=== PATIENT | female | born 1935 | race Caucasian/White ===

== ENCOUNTER 2016-11-13 06:01 | Emergency (ER) | payer MEDICARE ==
[2016-11-13] MEDS ORDERED: ACETAMINOPHEN 325 MG TABLET ONE (06:28)
--- NOTE | 2016-11-13 07:36 | RAD ---
KNEE- LEFT 4 OR MORE VIEWS HISTORY: Ground level fall. Diffuse knee pain. COMPARISONS: 12/04/2010. FINDINGS: 4 views of the left knee were performed demonstrating diffuse bony osteopenia. There is irregularity with ossific density adjacent to the inferior pole of the patella which was not evident on the prior examination and may reflect inferior pole fracture. Prominent osteoarthritic changes are seen with beaking of the tibial spines with medial compartment joint space loss and osteophyte formation. A left knee joint effusion is present. Atherosclerotic vascular calcification is seen posteriorly. IMPRESSION: 1. Ossific density adjacent to the inferior pole of the patella with irregularity, new since previous examination 2010 and raising concern for an inferior pole fracture. 2. Diffuse bony osteopenia. 3. Osteoarthritic changes with medial compartment joint space loss. 4. A left knee joint effusion.
== END 2016-11-13 07:56 | disposition home or self-care (01) ==
LOC: ED 06:01
DX: S89.92XA Unspecified injury of left lower leg, initial encounter (principal); I25.10 Atherosclerotic heart disease of native coronary artery without angina pectoris; E11.9 Type 2 diabetes mellitus without complications; Z87.891 Personal history of nicotine dependence; Z79.84 Long term (current) use of oral hypoglycemic drugs; W19.XXXA Unspecified fall, initial encounter; Y92.9 Unspecified place or not applicable